=== PATIENT | female | born 1955 | race Caucasian/White ===

== ENCOUNTER 2023-08-23 07:18 | Outpatient (RCR) | payer MEDICARE, SELFPAY | END 2023-08-23 23:59 | disposition home or self-care (01) | LOC: RPT 07:18 | PROVIDERS: ATTENDING PHYSICIAN Urology; PRIMARYCARE PHYSICIAN Student in an Organized Health Care Education/Training Program | DX: N39.3 Stress incontinence (female) (male) (principal); M62.89 Other specified disorders of muscle; N30.10 Interstitial cystitis (chronic) without hematuria; Z73.6 Limitation of activities due to disability | CPT/HCPCS: 97530 ==

== ENCOUNTER 2023-09-28 08:58 | Outpatient (RCR) | payer MEDICARE, SELFPAY | END 2023-09-28 23:59 | disposition home or self-care (01) | LOC: RPT 08:58 | PROVIDERS: ATTENDING PHYSICIAN Urology; PRIMARYCARE PHYSICIAN Student in an Organized Health Care Education/Training Program | DX: N39.3 Stress incontinence (female) (male) (principal); M62.89 Other specified disorders of muscle; N30.10 Interstitial cystitis (chronic) without hematuria; Z73.6 Limitation of activities due to disability | CPT/HCPCS: 97140; 97530 ==

== ENCOUNTER 2023-11-10 13:01 | Outpatient (RCR) | payer MEDICARE, SELFPAY | END 2023-11-10 23:59 | disposition home or self-care (01) | LOC: RPT 13:01 | PROVIDERS: ATTENDING PHYSICIAN Urology; PRIMARYCARE PHYSICIAN Student in an Organized Health Care Education/Training Program | DX: N39.3 Stress incontinence (female) (male) (principal); M62.89 Other specified disorders of muscle; N30.10 Interstitial cystitis (chronic) without hematuria; Z73.6 Limitation of activities due to disability | CPT/HCPCS: 97140; 97530 ==

== ENCOUNTER → 2023-12-09 12:19 | Outpatient (REF) | payer MEDICARE, SELFPAY | LOC: PAVMRI 12:19 | PROVIDERS: ATTENDING PHYSICIAN Orthopaedic Surgery Hand Surgery; FAMILY PHYSICIAN Student in an Organized Health Care Education/Training Program | DX: M75.121 Complete rotator cuff tear or rupture of right shoulder, not specified as traumatic (principal); M75.41 Impingement syndrome of right shoulder | CPT/HCPCS: 73221 ==

== ENCOUNTER → 2024-07-12 06:24 | Day surgery (SDC) | payer MEDICARE, SELFPAY | LOC: GI 06:24 | PROVIDERS: ATTENDING PHYSICIAN Internal Medicine Gastroenterology | DX: Z12.11 Encounter for screening for malignant neoplasm of colon (principal); D12.2 Benign neoplasm of ascending colon; K57.30 Diverticulosis of large intestine without perforation or abscess without bleeding; K64.8 Other hemorrhoids; K22.2 Esophageal obstruction; K44.9 Diaphragmatic hernia without obstruction or gangrene; R13.10 Dysphagia, unspecified; Z86.0100 Personal history of colon polyps, unspecified | CPT/HCPCS: 45380; 43249; 88305 ==

== ENCOUNTER → 2024-10-23 12:12 | Outpatient (REF) | payer MEDICARE, SELFPAY | LOC: WDC 12:12 | PROVIDERS: ATTENDING PHYSICIAN Obstetrics & Gynecology Gynecology; FAMILY PHYSICIAN Student in an Organized Health Care Education/Training Program | DX: Z12.39 Encounter for other screening for malignant neoplasm of breast (principal) | CPT/HCPCS: 77063; 77067 ==

== ENCOUNTER → 2025-01-02 13:20 | Outpatient (REF) | payer MEDICARE, SELFPAY | LOC: RCS 13:20 | PROVIDERS: ATTENDING PHYSICIAN Physician Assistant; FAMILY PHYSICIAN Student in an Organized Health Care Education/Training Program; REFERRING PHYSICIAN Internal Medicine Cardiovascular Disease | DX: E78.5 Hyperlipidemia, unspecified (principal); R07.89 Other chest pain | CPT/HCPCS: 93017; 93350 ==

== ENCOUNTER 2025-01-09 07:55 | Emergency (ER) | payer MEDICARE, SELFPAY ==
[2025-01-09 08:05] VITALS: BP 122/72
[2025-01-09 08:43] VITALS: BMI 33.8
--- NOTE | 2025-01-09 08:52 | ED.GENMED ---
History of Present Illness
General
Chief Complaint: Musculo-Skeletal Complaint
Source: patient
Exam Limitations: none
Time Seen by Provider: 01/09/25 08:40
Nursing documentation reviewed up to this point in time: agreed with
History of Present Illness
History of Present Illness:
The patient is a 69-year-old female who presented with acute left hand pain and swelling. The symptoms began the previous night around 10:00 PM while she was changing a bandage on her back. She described the onset as sudden, noting, 'Oh, my hand
hurts,' followed by increased swelling and worsening pain. The symptoms progressed to the point of significant impairment, affecting her ability to perform activities such as brushing her teeth and pulling up her pants. The swelling is predominantly
on the lateral side of the hand without involvement of the wrist, and she denies any other joint pain. There is no history of similar episodes, and the patient reports occasional joint pains but no official diagnosis of rheumatoid arthritis or other
specific conditions affecting the joints traditionally. She hasnt experienced fever or chills and denies any repetitive hand activities or recent injuries. She has not taken pain medication, such as acetaminophen, despite typically doing so.
Past History
Past History
ED Past Medical History: Hypercholesterolemia; Negative Asthma, HTN or NIDDM
ED Past Surgical History: None
Social History
Tobacco: Former smoker
Alcohol: Occasional
Drug: None
Personal: Single
Living: with family
Review of Systems
Review of Systems
Allergies reviewed?: Yes
All Other Systems: ROS reviewed and negative except as documented in HPI and ROS
Constitutional: Reports no symptoms; Denies fever, fatigue or chills
Musculoskeletal: Reports other (left hand pain )
Skin: Reports no symptoms
Psychiatric: Reports no symptoms
Phy Exam
General Physical Exam
General Presentation: no apparent distress
General age: appears stated age
General Skin: warm and dry
General Habitus: normal
General Mental: alert
General Hydration: appears well hydrated
Neurological Exam
Neurological Exam: alert and oriented x3
Musculoskeletal Exam
Musculoskeletal Exam: other (lue with strong places mild swelling noted over the distal 2nd and 3rd metacarpals are very minimally tender they are tender to the proximal fifth metatarsal on the dorsal aspect no erythema pain with flexion extension
of fingers normal cap refill no wrist tenderness or swelling noted)
Skin Exam
Skin Exam: normal color and warm/dry
Psychiatric Exam
Psychiatric Exam: normal mood/affect
Course
Orders/Labs/Results
Orders:
Orders
01/09/25 08:11
CR Hand - Left Min 3 Views Urgent
Comment:
Reason For Exam: pain/swelling
01/09/25 09:54
Splints/Slings/Crut- Treatment ONCE
Location: Left
Type of Splint: [place] Wrist
Ibuprofen [Motrin] 400 mg PO NOW STA
Vital Signs
Initial and Last Documented VS:
Initial Vital Signs
Temp Pulse Resp BP Pulse Ox
98.5 F 78 16 122/72 96
01/09/25 08:05 01/09/25 08:05 01/09/25 08:05 01/09/25 08:05 01/09/25 08:05
Last Documented Vital Signs
Temp Pulse Resp BP Pulse Ox
98.5 F 78 16 122/72 96
01/09/25 08:05 01/09/25 08:05 01/09/25 08:05 01/09/25 08:05 01/09/25 08:05
MDM/Problems Addressed
Differential Diagnosis Includes:
The Differential Diagnosis includes, in no particular order and is not limited to:
tenosynovitis
2. Gout
3. Pseudogout
4. Trauma or fracture
5. Septic arthritis
6. Rheumatoid arthritis flare
7. Cellulitis
8. Osteoarthritis exacerbation
9. Carpal tunnel syndrome
10. Tendonitis
MDM/Problems Addressed:
As documented patient is a 69-year-old female who presented with left hand discomfort since yesterday. She denies any exact injury she reports she may have hit it but she does not necessarily recall. She notes very minimal redness to the area
denies any fever or chills. On exam there is very scant amount she is tender to the proximal fifth metatarsal dorsal aspect. Hand x-ray reviewed does show a 2 mm round bony fragment which is very well-corticated likely a small old bony fragment
possible chronic degenerative change. Patient does not examine like septic arthritis /or cellulitis low suspicion for gout. I believe this is more of a inflammatory/arthritic cause of patient's symptoms. She is afebrile in no acute distress. I do
not believe this is an avulsion as she denies any exact trauma however for support will place in a splint however will DC with ice elevation and ibuprofen with close outpatient follow-up with orthopedics/hand.
*Radiology
Radiology exam reviewed: radiology read reviewed
*Pulse Oximetry
Patient hypoxic: no (96 % )
*Critical Care Note
Total Time (30-74mins, 75-104mins- exclusive of procedures): Not Applicable
ED Attending Note
-
Portions of this chart may have been created with voice recognition software.� Occasional wrong word or��sound alike� substitutions may have occurred due to the inherent limitations of voice recognition software.
Discharge Plan
Departure
Patient Disposition: Home (Routine Discharge)
Date of Disposition: 01/09/25
Time of Disposition: 09:56
Patient with high blood pressure during this ER visit?: No
Condition: Fair
Covid-19: Not Applicable
Discharge Problem:
Hand pain, left
Instructions: Muscle and Bone Pain (DC)
Prescriptions:
No Action
ondansetron 4 MG tablet,disintegrating
4 mg PO TIDPRN PRN (Reason: nausea/vomiting) Qty: 12 0RF
levofloxacin 500 MG tablet
500 mg PO DAILY Qty: 9 0RF
metronidazole 500 MG tablet
500 mg PO TID Qty: 29 0RF
Referrals:
Porfirio Ceja MD [Active, Orthopedics]
Karyna Almaraz MD [Family Provider, Internal Medicine]
Vern Rodriguez MD [Active, Orthopedics]
Activity Restrictions/Additional Instructions:
Right ice the affected area for the next 24 hours 20 minutes at a time several times a day. Keep elevated as much as possible. Ibuprofen 400 mg every 8 hours with food ; you may also Tylenol. Wear splint for support. Return if any worsening
of symptoms including increased pain redness red streaking fever chills. Please call orthopedics today for an appointment as soon as possible for reevaluation of symptoms.
Interventions
Interventions:
*Risk Screen - Suicide Last Done: 01/09/25 08:05
*General Assessment Last Done: 01/09/25 08:42
*Neglect/Abuse Screening Last Done: 01/09/25 08:05
*ED- Fall Risk Assessment Last Done: 01/09/25 08:42
*ED COVID-19 Vaccine History Last Done: 01/09/25 08:05
*Nursing Disposition Last Done: 01/09/25 10:26
ED-Musculoskeletal Assessment Last Done: 01/09/25 08:45
Discharge Date and Time
Discharge Date/Time: 01/09/25 10:27
Print Language: EMIRATI
[2025-01-09] MEDS: MOTRIN 400 MG PO (10:13)
== END 2025-01-09 10:27 | disposition home or self-care (01) ==
LOC: EMR 07:55
PROVIDERS: EMERGENCY PHYSICIAN Emergency Medicine; FAMILY PHYSICIAN Student in an Organized Health Care Education/Training Program
DX: M79.642 Pain in left hand (principal); R22.42 Localized swelling, mass and lump, left lower limb; E78.00 Pure hypercholesterolemia, unspecified; Z87.891 Personal history of nicotine dependence
CPT/HCPCS: 99283; 73130

== ENCOUNTER → 2025-06-07 17:37 | Outpatient (REF) | payer MEDICARE, SELFPAY | LOC: PAVMRI 17:37 | PROVIDERS: ATTENDING PHYSICIAN Physical Medicine & Rehabilitation Sports Medicine; FAMILY PHYSICIAN Student in an Organized Health Care Education/Training Program | DX: M25.551 Pain in right hip (principal); M25.552 Pain in left hip; M53.3 Sacrococcygeal disorders, not elsewhere classified; R29.898 Other symptoms and signs involving the musculoskeletal system | CPT/HCPCS: 72148; 72195 ==